=== PATIENT | male | born 1970 | race Caucasian/White ===

== ENCOUNTER 2020-11-30 09:06 | Day surgery (SDCO) | payer OTHER ==
[~2020-11-30] VITALS: Ht 182.9 cm; Wt 123.4 kg
[2020-11-30 10:16] LABS: BASOPHIL 0.7 % (0-2); EOSINOPHIL 1.1 % (0-5); HCT 48.1 % (42.0-52.0); HGB 16.6 g/dl (13.2-18.0); LYMPHOCYTE 29.4 % (15-48); MCH 29.3 pg (25.0-31.0); MCHC 34.5 g/dL (32.0-36.0); MONOCYTE 7.2 % (0-12); MPV 10.5 fL (6.0-9.5); NEUTROPHIL 61.3 % (41-80); NRBC 0; PLT 193 K/uL (150-400); RBC 5.66 M/uL (4.70-6.00); RDW 12.7 % (11.5-14.0); WBC 6.1 K/uL (4.0-10.5)
[2020-11-30 10:37] LABS: INR 1.1 (0.9-1.2); PROTHROMBIN TIME 13.6 SECONDS (11.8-13.4); PTT 27.6 SECONDS (24.4-34.7)
[2020-11-30 10:44] LABS: ALBUMIN 3.7 g/dL (3.4-5.0); BILIRUBIN - TOTAL 0.5 mg/dL (0.2-1.0); BUN/CREAT RATIO (CALC) 11.9 RATIO; CREATININE 1.26 mg/dL (0.67-1.17); GLOBULIN (CALCULATION) 3.5 g/dL; POTASSIUM 3.9 mmol/L (3.5-5.1); TOTAL PROTEIN 7.2 g/dL (6.4-8.2)
[2020-11-30 12:03] LABS: BILIRUBIN NEGATIVE (NEGATIVE); BLOOD 1+ Ery/uL (NEGATIVE); CLARITY CLEAR (CLEAR); COLOR YELLOW (YELLOW); GLUCOSE (U) NORMAL (NORMAL); LEUKOCYTES NEGATIVE Leu/uL (NEGATIVE); NITRITE NEGATIVE (NEGATIVE); PROTEIN NEGATIVE (NEGATIVE); UROBILINOGEN 0.2 mg/dL (0.2-1.0)
[2020-11-30 12:04] LABS: AMPHETAMINES NEGATIVE (NEGATIVE); BARBITURATES NEGATIVE (NEGATIVE); ECSTASY (MDMA) NEGATIVE (NEGATIVE); MARIJUANA (THC) POSITIVE (NEGATIVE); METHADONE NEGATIVE (NEGATIVE); OPIATES NEGATIVE (NEGATIVE); OXYCODONE NEGATIVE (NEGATIVE)
[2020-11-30 12:10] LABS: URINARY RBC RARE
[2020-11-30] MEDS ORDERED: GLUCOTROL5 MG PO (15:37)
[2020-11-30] MEDS ORDERED: BAYER CHEWABLE81 MG PO (15:38)
[2020-11-30] MEDS ORDERED: OMEPRAZOLE20 M2 PO (15:38)
[2020-11-30] MEDS ORDERED: OZEMPIC1 MG/0.71 SC (15:39)
[2020-12-01 05:55] LABS: BASOPHIL 0.8 % (0-2); EOSINOPHIL 1.4 % (0-5); HCT 46.1 % (42.0-52.0); HGB 15.9 g/dl (13.2-18.0); LYMPHOCYTE 32.4 % (15-48); MCH 29.5 pg (25.0-31.0); MCHC 34.5 g/dL (32.0-36.0); MCV 85.5 fL (78.0-100.0); MONOCYTE 9.1 % (0-12); MPV 10.6 fL (6.0-9.5); NRBC 0; PLT 172 K/uL (150-400); RBC 5.39 M/uL (4.70-6.00); RDW 12.8 % (11.5-14.0); WBC 6.4 K/uL (4.0-10.5)
[2020-12-01 06:26] LABS: ALBUMIN 3.6 g/dL (3.4-5.0); BILIRUBIN - TOTAL 0.9 mg/dL (0.2-1.0); BUN/CREAT RATIO (CALC) 12.8 RATIO; CREATININE 1.25 mg/dL (0.67-1.17); GLOBULIN (CALCULATION) 3.4 g/dL; POTASSIUM 3.9 mmol/L (3.5-5.1)
--- NOTE | 2020-12-01 07:08 | NUR ---
CARDIZEM GTT ON 5ML/HR SINCE 1999. PT CONVERTED TO NSR AT 1930. KACI GRIFFIN AWARE.
[2020-12-01] MEDS ORDERED: BETAPACE80 MG PO (11:42)
== END 2020-12-01 13:30 | disposition home or self-care (01) ==
LOC: FER 09:06 → FTCU 11:58
PROVIDERS: Emergency Medicine; Nurse Practitioner; ADMIT Internal Medicine
DX: I48.0 Paroxysmal atrial fibrillation (principal); R31.9 Hematuria, unspecified; E11.9 Type 2 diabetes mellitus without complications; G43.909 Migraine, unspecified, not intractable, without status migrainosus; G47.33 Obstructive sleep apnea (adult) (pediatric); K21.9 Gastro-esophageal reflux disease without esophagitis; F43.10 Post-traumatic stress disorder, unspecified; R94.31 Abnormal electrocardiogram [ECG] [EKG]; Z79.84 Long term (current) use of oral hypoglycemic drugs; Z79.82 Long term (current) use of aspirin; Z79.899 Other long term (current) drug therapy; Z20.822 Contact with and (suspected) exposure to COVID-19; Z87.820 Personal history of traumatic brain injury; Z87.891 Personal history of nicotine dependence
CPT/HCPCS: 36415; 71045; 80053; 80061; 80305; 81001; 83036; 83880; 84484; 85025; 85379; 85610; 85730; 87040; 87088; 93005; 96372; G0378; G0480; J1650; U0002

== ENCOUNTER 2022-01-14 13:43 | Emergency (ER) | payer OTHER ==
[~2022-01-14 13:43] MED LIST: BAYER CHEWABLE81 MG PO; BETAPACE80 MG PO; GLUCOTROL5 MG PO; OMEPRAZOLE20 M2 PO; OZEMPIC1 MG/0.71 SC
[2022-01-14 14:32] LABS: BASOPHIL 0.3 % (0-2); EOSINOPHIL 1.5 % (0-5); HCT 48.4 % (42.0-52.0); HGB 16.9 g/dl (13.2-18.0); LYMPHOCYTE 30.4 % (15-48); MCH 30.3 pg (25.0-31.0); MCHC 34.9 g/dL (32.0-36.0); MCV 86.7 fL (78.0-100.0); MONOCYTE 6.7 % (0-12); MPV 10.8 fL (6.0-9.5); NEUTROPHIL 60.8 % (41-80); NRBC 0; PLT 174 K/uL (150-400); RBC 5.58 M/uL (4.70-6.00); RDW 12.5 % (11.5-14.0); WBC 6.6 K/uL (4.0-10.5)
[2022-01-14 15:06] LABS: INR 1.04 (0.9-1.2); PROTHROMBIN TIME 13.3 SECONDS (11.9-13.9); PTT 23.5 SECONDS (24.9-34.6)
[2022-01-14 15:11] LABS: BILIRUBIN - TOTAL 0.8 mg/dL (0.2-1.0); BUN/CREAT RATIO (CALC) 17.4 RATIO; CREATININE 1.09 mg/dL (0.67-1.17); GLOBULIN (CALCULATION) 3.4 g/dL; POTASSIUM 3.8 mmol/L (3.5-5.1); TOTAL PROTEIN 7.4 g/dL (6.4-8.2)
== END 2022-01-14 19:53 | disposition home or self-care (01) ==
LOC: FER 13:43
PROVIDERS: Emergency Medicine
DX: R07.89 Other chest pain (principal); E11.9 Type 2 diabetes mellitus without complications; Z98.890 Other specified postprocedural states
CPT/HCPCS: 36415; 71045; 71275; 80053; 84484; 85025; 85379; 85610; 85730; 93005; Q9967